=== PATIENT | male | born 1970 | race African-American/Black ===

== ENCOUNTER 2024-05-13 13:16 | Emergency (ER) | payer SELFPAY ==
[2024-05-13 13:35] LABS: BASOPHILS ABSOLUTE AUTO 0.03 K/uL (0.00-0.20); BASOPHILS PERCENT AUTO 0.7 % (0.0-1.0); EOSINOPHILS ABSOLUTE AUTO 0.08 K/uL (0.00-0.45); EOSINOPHILS PERCENT AUTO 1.9 % (0.0-6.0); HEMATOCRIT 44.5 % (42.0-52.0); HEMOGLOBIN 15.4 g/dL (14.0-18.0); LYMPHOCYTES ABSOLUTE AUTO 1.77 K/uL (1.00-4.80); LYMPHOCYTES PERCENT AUTO 43.1 % (24.0-44.0); MEAN CORPUSCULAR HEMOGLOBIN 28.1 pg (28.0-32.0); MEAN CORPUSCULAR HGB CONC 34.6 g/dL (32.0-36.0); MEAN CORPUSCULAR VOLUME 81.2 fL (83.0-99.0); MEAN PLATELET VOLUME 11.4 fL (9.4-12.4); MONOCYTES ABSOLUTE AUTO 0.46 K/uL (0.00-0.80); MONOCYTES PERCENT AUTO 11.2 % (0.0-8.0); NEUTROPHILS ABSOLUTE AUTO 1.77 K/uL (1.80-7.70); NEUTROPHILS PERCENT AUTO 43.1 % (41.0-71.0); PLATELET COUNT,PLT 201 K/uL (150-400); RED BLOOD CELL COUNT 5.48 M/uL (4.52-5.90); WHITE BLOOD CELL COUNT,WBC 4.11 K/uL (3.9-11.3)
[2024-05-13 13:55] LABS: A/G RATIO 0.9 (0.9-1.6); BILIRUBIN TOTAL 0.5 mg/dL (0.2-1.0); CALCIUM 9.7 mg/dL (8.5-10.1); CARBON DIOXIDE,CO2 31.9 mmol/L (21.0-32.0); CREATININE 1.5 mg/dL (0.8-1.3); EST CRCL DRUG DOSING (CG) 55.1 mL/min; PROTEIN TOTAL,TP 8.4 g/dL (6.4-8.2)
[2024-05-13] MEDS: hydrALAZINE 20 MG/ML SDV IVPUSH ONE (14:25)
== END 2024-05-13 15:03 | disposition home or self-care (01) ==
LOC: MW.ED 13:16
DX: I10 Essential (primary) hypertension (principal); Z75.8 Other problems related to medical facilities and other health care
CPT/HCPCS: 36415; 80053; 85025; 96374; 99283; J0360

== ENCOUNTER 2025-04-24 07:22 | Emergency (ER) | payer OTHER ==
[2025-04-24] MEDS: Acetaminophen/HYDROcodone 325-5 MG Tab PO ONE (09:07)
== END 2025-04-24 09:09 | disposition home or self-care (01) ==
LOC: MW.ED 07:22
DX: S16.1XXA Strain of muscle, fascia and tendon at neck level, initial encounter (principal); S90.02XA Contusion of left ankle, initial encounter; Z79.899 Other long term (current) drug therapy; Z79.84 Long term (current) use of oral hypoglycemic drugs; V49.40XA Driver injured in collision with unspecified motor vehicles in traffic accident, initial encounter
CPT/HCPCS: 70450; 70450-26; 72125; 72125-26; 73610-26-LT; 73610-LT; 99284; A9270-GY